=== PATIENT | female | born 1950 | race Caucasian/White ===

== ENCOUNTER → 2016-11-11 | Outpatient (CLI) | payer MEDICARE, MEDICAID ==
[~2016-11-11] MED LIST: ATOR40TA28 PO; CARV3 PO; CYCL10 PO; FLUO-191 PO; HYDR-4065 PO; LOSA25TA21 PO; MECL-111 PO; NITR.4 SL; NITR50CA PO; OMEP20 PO; SIMV-261 PO
[2016-11-11 09:12] LABS: BASOPHILS % (AUTO) 0.4 % (0.0-2.0); EOSINOPHILS % (AUTO) 1.4 % (1.0-6.0); HEMOGLOBIN 14.7 g/dL (12.0-16.0); LYMPHOCYTES # (AUTO) 2.4 K/uL (1.0-4.8); LYMPHOCYTES % (AUTO) 30.2 % (22.0-44.0); MEAN CORPUSCULAR HEMOGLOBIN 32.3 pg (26.0-34.0); MEAN CORPUSCULAR HGB CONC 33.3 G/dL (31.0-37.0); MEAN CORPUSCULAR VOLUME 97 fL (80-100); MONOCYTES # (AUTO) 0.6 K/uL (0.1-1.0); MONOCYTES % (AUTO) 6.9 % (2.0-9.0); NEUTROPHILS # (AUTO) 4.9 K/uL (1.8-7.7); NEUTROPHILS % (AUTO) 61.1 % (40.0-70.0); PLATELET COUNT (AUTO) 193 K/uL (150-450); RED BLOOD CELL COUNT(AUTO) 4.55 MIL/uL (4.00-5.20)
[2016-11-11 09:20] LABS: HEMOGLOBIN A1C 5.9 % (4.5-6.2)
[2016-11-11 09:29] LABS: ALANINE AMINOTRANSFERASE 26 U/L (12-78); ALBUMIN 3.6 g/dL (3.4-5.0); ANION GAP 8 mmol/L (8-16); ASPARTATE AMINOTRANSFERASE 16 U/L (15-37); BILIRUBIN,TOTAL 0.4 mg/dL (0.1-1.0); CALCIUM, TOTAL 8.7 mg/dL (8.8-10.5); CARBON DIOXIDE 31 mmol/L (22-29); CHLORIDE 103 mmol/L (98-107); CHOL/HDL RATIO 5.2 (3.9-5.7); GLOMERULAR FILTR. RATE CALC > 60 mL/min (>60); POTASSIUM 3.9 mmol/L (3.5-5.1); SODIUM SERUM 142 mmol/L (136-145); THYROID STIMULATING HORMONE 2.11 uIU/mL (0.36-3.74); TOTAL PROTEIN, SERUM 7.3 g/dL (6.4-8.2); UREA NITROGEN, BLOOD 12 mg/dL (7-18)
== END | disposition home or self-care (01) ==
LOC: LABPV 07:52
PROVIDERS: ATTEND Internal Medicine Cardiovascular Disease
DX: E11.8 Type 2 diabetes mellitus with unspecified complications (principal); I11.0 Hypertensive heart disease with heart failure; I50.9 Heart failure, unspecified; E55.9 Vitamin D deficiency, unspecified
CPT/HCPCS: 82306; 83036; 84439; 84443

== ENCOUNTER → 2017-01-13 | Outpatient (CLI) | payer MEDICARE, MEDICAID ==
[~2017-01-13] MED LIST changes: -SIMV-261 PO; +SIMV40 PO
[2017-01-13 10:18] LABS: BASOPHILS % (AUTO) 0.3 % (0.0-2.0); EOSINOPHILS % (AUTO) 1.2 % (1.0-6.0); HEMATOCRIT 39.7 % (36-46); LYMPHOCYTES # (AUTO) 1.8 K/uL (1.0-4.8); MEAN CORPUSCULAR HEMOGLOBIN 32.2 pg (26.0-34.0); MEAN CORPUSCULAR HGB CONC 32.8 G/dL (31.0-37.0); MEAN CORPUSCULAR VOLUME 98 fL (80-100); MONOCYTES # (AUTO) 0.6 K/uL (0.1-1.0); MONOCYTES % (AUTO) 5.9 % (2.0-9.0); NEUTROPHILS # (AUTO) 7.6 K/uL (1.8-7.7); NEUTROPHILS % (AUTO) 74.6 % (40.0-70.0); PLATELET COUNT (AUTO) 145 K/uL (150-450); RED BLOOD CELL COUNT(AUTO) 4.04 MIL/uL (4.00-5.20); WHITE BLOOD COUNT (AUTO) 10.2 K/uL (4.5-11.0)
[2017-01-13 10:27] LABS: HEMOGLOBIN A1C 6.1 % (4.5-6.2)
[2017-01-13 10:42] LABS: ALANINE AMINOTRANSFERASE 28 U/L (12-78); ALBUMIN 3.5 g/dL (3.4-5.0); ANION GAP 6 mmol/L (8-16); ASPARTATE AMINOTRANSFERASE 24 U/L (15-37); BILIRUBIN,TOTAL 0.4 mg/dL (0.1-1.0); CALCIUM, TOTAL 8.8 mg/dL (8.8-10.5); CARBON DIOXIDE 32 mmol/L (22-29); CHLORIDE 106 mmol/L (98-107); CHOL/HDL RATIO 4.4 (3.9-5.7); CREATININE 0.67 mg/dL (0.60-1.30); GLOMERULAR FILTR. RATE CALC > 60 mL/min (>60); POTASSIUM 4.2 mmol/L (3.5-5.1); SODIUM SERUM 144 mmol/L (136-145); THYROID STIMULATING HORMONE 1.41 uIU/mL (0.36-3.74); UREA NITROGEN, BLOOD 10 mg/dL (7-18)
== END | disposition home or self-care (01) ==
LOC: LABPV 08:37
PROVIDERS: ATTEND Internal Medicine Cardiovascular Disease
DX: I11.0 Hypertensive heart disease with heart failure (principal); I50.9 Heart failure, unspecified; E11.8 Type 2 diabetes mellitus with unspecified complications; R73.09 Other abnormal glucose
CPT/HCPCS: 82306; 83036; 84439; 84443

== ENCOUNTER → 2017-04-06 | Outpatient (CLI) | payer MEDICARE, MEDICAID ==
[~2017-04-06] MED LIST changes: +SIMV-261 PO; -SIMV40 PO
[2017-04-06 09:12] LABS: BASOPHILS % (AUTO) 0.4 % (0.0-2.0); HEMATOCRIT 44.4 % (36-46); HEMOGLOBIN 15.2 g/dL (12.0-16.0); LYMPHOCYTES # (AUTO) 2.8 K/uL (1.0-4.8); LYMPHOCYTES % (AUTO) 31.9 % (22.0-44.0); MEAN CORPUSCULAR HGB CONC 34.2 G/dL (31.0-37.0); MEAN CORPUSCULAR VOLUME 96 fL (80-100); MONOCYTES # (AUTO) 0.6 K/uL (0.1-1.0); MONOCYTES % (AUTO) 6.7 % (2.0-9.0); NEUTROPHILS # (AUTO) 5.3 K/uL (1.8-7.7); PLATELET COUNT (AUTO) 214 K/uL (150-450); RED BLOOD CELL COUNT(AUTO) 4.61 MIL/uL (4.00-5.20); WHITE BLOOD COUNT (AUTO) 8.9 K/uL (4.5-11.0)
[2017-04-06 09:40] LABS: ALANINE AMINOTRANSFERASE 28 U/L (12-78); ALBUMIN 3.8 g/dL (3.4-5.0); ANION GAP 9 mmol/L (8-16); ASPARTATE AMINOTRANSFERASE 14 U/L (15-37); BILIRUBIN,TOTAL 0.2 mg/dL (0.1-1.0); CALCIUM, TOTAL 9.3 mg/dL (8.8-10.5); CARBON DIOXIDE 28 mmol/L (22-29); CHLORIDE 101 mmol/L (98-107); CHOL/HDL RATIO 6.8 (3.9-5.7); CREATININE 0.74 mg/dL (0.60-1.30); GLOMERULAR FILTR. RATE CALC > 60 mL/min (>60); POTASSIUM 3.9 mmol/L (3.5-5.1); SODIUM SERUM 138 mmol/L (136-145); THYROID STIMULATING HORMONE 1.49 uIU/mL (0.36-3.74); UREA NITROGEN, BLOOD 15 mg/dL (7-18)
[2017-04-06 10:04] LABS: B-TYPE NATRIURETIC PEPTIDE 23 pg/mL (0-100)
== END | disposition home or self-care (01) ==
LOC: LABPV 07:47
PROVIDERS: ATTEND Internal Medicine Cardiovascular Disease
DX: I11.0 Hypertensive heart disease with heart failure (principal); I50.9 Heart failure, unspecified; E55.9 Vitamin D deficiency, unspecified; E11.8 Type 2 diabetes mellitus with unspecified complications
CPT/HCPCS: 82306; 83036; 83735; 84439; 84443

== ENCOUNTER → 2017-07-21 | Outpatient (CLI) | payer MEDICARE, MEDICAID ==
[2017-07-21 11:13] LABS: BASOPHILS # (AUTO) 0.02 K/uL (0.00-0.20); BASOPHILS % (AUTO) 0.3 % (0.0-2.0); EOSINOPHILS # (AUTO) 0.11 K/uL (0.00-0.70); EOSINOPHILS % (AUTO) 1.24 % (1.0-6.0); HEMATOCRIT 48.1 % (36-46); HEMOGLOBIN 16.4 g/dL (12.0-16.0); LYMPHOCYTES # (AUTO) 2.3 K/uL (1.0-4.8); LYMPHOCYTES % (AUTO) 25.5 % (22.0-44.0); MEAN CORPUSCULAR HEMOGLOBIN 32.9 pg (26.0-34.0); MEAN CORPUSCULAR VOLUME 97 fL (80-100); MONOCYTES # (AUTO) 0.6 K/uL (0.1-1.0); NEUTROPHILS # (AUTO) 5.9 K/uL (1.8-7.7); PLATELET COUNT (AUTO) 200 K/uL (150-450); RED BLOOD CELL COUNT(AUTO) 4.97 MIL/uL (4.00-5.20); RED CELL DISTRIBUTION WIDTH 13.2 % (11.5-14.5)
[2017-07-21 11:21] LABS: HEMOGLOBIN A1C 5.8 % (4.5-6.2)
[2017-07-21 11:32] LABS: B-TYPE NATRIURETIC PEPTIDE 19 pg/mL (0-100)
[2017-07-21 11:43] LABS: ALANINE AMINOTRANSFERASE 24 U/L (12-78); ALBUMIN 3.9 g/dL (3.4-5.0); ANION GAP 7 mmol/L (8-16); ASPARTATE AMINOTRANSFERASE 13 U/L (15-37); BILIRUBIN,TOTAL 0.3 mg/dL (0.1-1.0); CALCIUM, TOTAL 8.9 mg/dL (8.8-10.5); CARBON DIOXIDE 30 mmol/L (22-29); CHLORIDE 101 mmol/L (98-107); CHOL/HDL RATIO 8.7 (3.9-5.7); GLOMERULAR FILTR. RATE CALC > 60 mL/min (>60); POTASSIUM 3.8 mmol/L (3.5-5.1); SODIUM SERUM 138 mmol/L (136-145); THYROID STIMULATING HORMONE 1.35 uIU/mL (0.36-3.74); TOTAL PROTEIN, SERUM 8.4 g/dL (6.4-8.2); UREA NITROGEN, BLOOD 8 mg/dL (7-18)
== END | disposition home or self-care (01) ==
LOC: MSR 09:55
PROVIDERS: ATTEND Internal Medicine Cardiovascular Disease
DX: I11.0 Hypertensive heart disease with heart failure (principal); I50.9 Heart failure, unspecified; E11.8 Type 2 diabetes mellitus with unspecified complications; E55.9 Vitamin D deficiency, unspecified; J44.9 Chronic obstructive pulmonary disease, unspecified; I70.0 Atherosclerosis of aorta; J98.11 Atelectasis
CPT/HCPCS: 71020; 82306; 83036; 83735; 84439; 84443

== ENCOUNTER → 2017-11-17 | Outpatient (CLI) | payer MEDICARE, MEDICAID ==
[2017-11-17 10:26] LABS: BASOPHILS % (AUTO) 0.4 % (0.0-2.0); EOSINOPHILS % (AUTO) 1.2 % (1.0-6.0); HEMATOCRIT 43.9 % (36-46); HEMOGLOBIN 15.4 g/dL (12.0-16.0); LYMPHOCYTES # (AUTO) 2.2 K/uL (1.0-4.8); MEAN CORPUSCULAR HEMOGLOBIN 33.8 pg (26.0-34.0); MEAN CORPUSCULAR HGB CONC 34.9 G/dL (31.0-37.0); MEAN CORPUSCULAR VOLUME 97 fL (80-100); MONOCYTES # (AUTO) 0.6 K/uL (0.1-1.0); MONOCYTES % (AUTO) 7.6 % (2.0-9.0); NEUTROPHILS # (AUTO) 4.5 K/uL (1.8-7.7); NEUTROPHILS % (AUTO) 60.8 % (40.0-70.0); PLATELET COUNT (AUTO) 178 K/uL (150-450); RED BLOOD CELL COUNT(AUTO) 4.54 MIL/uL (4.00-5.20)
[2017-11-17 10:41] LABS: HEMOGLOBIN A1C 5.9 % (4.5-6.2)
[2017-11-17 10:46] LABS: ALANINE AMINOTRANSFERASE 20 U/L (12-78); ALBUMIN 3.8 g/dL (3.4-5.0); ALKALINE PHOSPHATASE 94 U/L (46-116); ANION GAP 6 mmol/L (8-16); ASPARTATE AMINOTRANSFERASE 16 U/L (15-37); BILIRUBIN,TOTAL 0.3 mg/dL (0.1-1.0); CALCIUM, TOTAL 9.6 mg/dL (8.8-10.5); CARBON DIOXIDE 33 mmol/L (22-29); CHLORIDE 103 mmol/L (98-107); CHOL/HDL RATIO 7.9 (3.9-5.7); CHOLESTEROL 275 mg/dL (131-200); CREATININE 0.74 mg/dL (0.60-1.30); FREE T4 (FREE THYROXINE) 0.91 ng/dL (0.76-1.46); GLOMERULAR FILTR. RATE CALC > 60 mL/min (>60); GLUCOSE,RANDOM 102 mg/dL (70-110); HDL CHOLESTEROL 35 mg/dL (40-60); LDL CHOL (CALC.) 205 mg/dL (0-130); POTASSIUM 3.7 mmol/L (3.5-5.1); SODIUM SERUM 142 mmol/L (136-145); THYROID STIMULATING HORMONE 1.45 uIU/mL (0.36-3.74); TOTAL PROTEIN, SERUM 7.5 g/dL (6.4-8.2); TRIGLYCERIDES 173 mg/dL (15-150); UREA NITROGEN, BLOOD 11 mg/dL (7-18)
== END | disposition home or self-care (01) ==
LOC: LABPV 07:51
PROVIDERS: ATTEND Internal Medicine Cardiovascular Disease
DX: I11.0 Hypertensive heart disease with heart failure (principal); I50.9 Heart failure, unspecified; E11.8 Type 2 diabetes mellitus with unspecified complications; E55.9 Vitamin D deficiency, unspecified; D56.5 Hemoglobin E-beta thalassemia
CPT/HCPCS: 82306; 83036; 83735; 84439; 84443; 86141

== ENCOUNTER → 2017-12-30 | Outpatient (CLI) | payer MEDICARE, MEDICAID ==
[2017-12-30 11:40] LABS: ALANINE AMINOTRANSFERASE 23 U/L (12-78); ALBUMIN 3.6 g/dL (3.4-5.0); ALKALINE PHOSPHATASE 102 U/L (46-116); ANION GAP 11 mmol/L (8-16); ASPARTATE AMINOTRANSFERASE 19 U/L (15-37); BILIRUBIN,TOTAL 0.3 mg/dL (0.1-1.0); CALCIUM, TOTAL 8.9 mg/dL (8.8-10.5); CARBON DIOXIDE 27 mmol/L (22-29); CHLORIDE 104 mmol/L (98-107); CHOL/HDL RATIO 7.6 (3.9-5.7); CHOLESTEROL 244 mg/dL (131-200); GLOMERULAR FILTR. RATE CALC > 60 mL/min (>60); GLUCOSE,RANDOM 100 mg/dL (70-110); HDL CHOLESTEROL 32 mg/dL (40-60); LDL CHOL (CALC.) 169 mg/dL (0-130); POTASSIUM 4.1 mmol/L (3.5-5.1); SODIUM SERUM 142 mmol/L (136-145); TOTAL PROTEIN, SERUM 7.5 g/dL (6.4-8.2); TRIGLYCERIDES 214 mg/dL (15-150)
[2017-12-30 12:09] LABS: UREA NITROGEN, BLOOD 15 mg/dL (7-18)
== END | disposition home or self-care (01) ==
LOC: LABPV 09:42
PROVIDERS: ATTEND Internal Medicine Cardiovascular Disease
DX: I11.0 Hypertensive heart disease with heart failure (principal); I50.9 Heart failure, unspecified; E11.8 Type 2 diabetes mellitus with unspecified complications; E55.9 Vitamin D deficiency, unspecified; D56.5 Hemoglobin E-beta thalassemia

== ENCOUNTER → 2018-02-18 | Outpatient (CLI) | payer MEDICARE, MEDICAID ==
[2018-02-18 10:52] LABS: ALANINE AMINOTRANSFERASE 34 U/L (12-78); ALBUMIN 3.9 g/dL (3.4-5.0); ALKALINE PHOSPHATASE 90 U/L (46-116); ANION GAP 5 mmol/L (8-16); ASPARTATE AMINOTRANSFERASE 21 U/L (15-37); BILIRUBIN,TOTAL 0.2 mg/dL (0.1-1.0); CALCIUM, TOTAL 9.7 mg/dL (8.8-10.5); CARBON DIOXIDE 31 mmol/L (22-29); CHLORIDE 100 mmol/L (98-107); CHOL/HDL RATIO 2.8 (3.9-5.7); CHOLESTEROL 153 mg/dL (131-200); CREATININE 0.74 mg/dL (0.60-1.30); GLOMERULAR FILTR. RATE CALC > 60 mL/min (>60); GLUCOSE,RANDOM 104 mg/dL (70-110); HDL CHOLESTEROL 54 mg/dL (40-60); LDL CHOL (CALC.) 82 mg/dL (0-130); POTASSIUM 5.2 mmol/L (3.5-5.1); SODIUM SERUM 136 mmol/L (136-145); TOTAL PROTEIN, SERUM 8.1 g/dL (6.4-8.2); TRIGLYCERIDES 87 mg/dL (15-150); UREA NITROGEN, BLOOD 15 mg/dL (7-18)
== END | disposition home or self-care (01) ==
LOC: LABPV 07:57
PROVIDERS: ATTEND Internal Medicine Cardiovascular Disease
DX: I11.0 Hypertensive heart disease with heart failure (principal); I50.9 Heart failure, unspecified; E55.9 Vitamin D deficiency, unspecified; E11.8 Type 2 diabetes mellitus with unspecified complications; D56.5 Hemoglobin E-beta thalassemia

== ENCOUNTER → 2018-03-30 | Outpatient (CLI) | payer MEDICARE, MEDICAID ==
[2018-03-30 12:19] LABS: BASOPHILS % (AUTO) 0.5 % (0.0-2.0); EOSINOPHILS % (AUTO) 1.3 % (1.0-6.0); HEMATOCRIT 44.7 % (36-46); HEMOGLOBIN 15.7 g/dL (12.0-16.0); LYMPHOCYTES # (AUTO) 2.7 K/uL (1.0-4.8); LYMPHOCYTES % (AUTO) 32.8 % (22.0-44.0); MEAN CORPUSCULAR HEMOGLOBIN 33.6 pg (26.0-34.0); MEAN CORPUSCULAR VOLUME 96 fL (80-100); MONOCYTES # (AUTO) 0.7 K/uL (0.1-1.0); NEUTROPHILS # (AUTO) 4.7 K/uL (1.8-7.7); NEUTROPHILS % (AUTO) 57.4 % (40.0-70.0); PLATELET COUNT (AUTO) 208 K/uL (150-450); RED BLOOD CELL COUNT(AUTO) 4.67 MIL/uL (4.00-5.20)
[2018-03-30 12:33] LABS: HEMOGLOBIN A1C 6.1 % (4.5-6.2)
[2018-03-30 12:37] LABS: ALANINE AMINOTRANSFERASE 32 U/L (12-78); ALBUMIN 3.9 g/dL (3.4-5.0); ALKALINE PHOSPHATASE 79 U/L (46-116); ANION GAP 6 mmol/L (8-16); ASPARTATE AMINOTRANSFERASE 18 U/L (15-37); BILIRUBIN,TOTAL 0.3 mg/dL (0.1-1.0); CALCIUM, TOTAL 8.9 mg/dL (8.8-10.5); CARBON DIOXIDE 31 mmol/L (22-29); CHLORIDE 100 mmol/L (98-107); CHOL/HDL RATIO 3.6 (3.9-5.7); CHOLESTEROL 146 mg/dL (131-200); CREATININE 0.64 mg/dL (0.60-1.30); GLOMERULAR FILTR. RATE CALC > 60 mL/min (>60); GLUCOSE,RANDOM 93 mg/dL (70-110); HDL CHOLESTEROL 41 mg/dL (40-60); LDL CHOL (CALC.) 77 mg/dL (0-130); POTASSIUM 4.3 mmol/L (3.5-5.1); SODIUM SERUM 137 mmol/L (136-145); THYROID STIMULATING HORMONE 1.37 uIU/mL (0.36-3.74); TOTAL PROTEIN, SERUM 7.9 g/dL (6.4-8.2); TRIGLYCERIDES 142 mg/dL (15-150); UREA NITROGEN, BLOOD 14 mg/dL (7-18)
[2018-03-30 12:40] LABS: B-TYPE NATRIURETIC PEPTIDE 16 pg/mL (0-100)
== END | disposition home or self-care (01) ==
LOC: LABPV 11:17
PROVIDERS: ATTEND Internal Medicine Cardiovascular Disease
DX: I11.0 Hypertensive heart disease with heart failure (principal); I50.9 Heart failure, unspecified; E11.8 Type 2 diabetes mellitus with unspecified complications; E55.9 Vitamin D deficiency, unspecified; D56.5 Hemoglobin E-beta thalassemia
CPT/HCPCS: 82306; 83036; 83735; 84439; 84443

== ENCOUNTER → 2018-04-19 | Outpatient (CLI) | payer MEDICARE, MEDICAID ==
[~2018-04-19] MED LIST changes: +IOVERSOL 350 MG/ML 100 ML VIAL ONE; +SODIUM CHLORIDE 0.9% 100 ML ONE
== END | disposition home or self-care (01) ==
LOC: RADMN 07:46
PROVIDERS: ATTEND Internal Medicine Cardiovascular Disease
DX: J43.9 Emphysema, unspecified (principal); I26.99 Other pulmonary embolism without acute cor pulmonale; I11.0 Hypertensive heart disease with heart failure; I50.9 Heart failure, unspecified; E11.9 Type 2 diabetes mellitus without complications; K21.9 Gastro-esophageal reflux disease without esophagitis
CPT/HCPCS: 71275; J7050; Q9967

== ENCOUNTER → 2018-04-22 | Outpatient (CLI) | payer MEDICARE, MEDICAID ==
[~2018-04-22] MED LIST changes: -IOVERSOL 350 MG/ML 100 ML VIAL ONE; -SODIUM CHLORIDE 0.9% 100 ML ONE
== END | disposition home or self-care (01) ==
LOC: RADMN 07:59
PROVIDERS: ATTEND Internal Medicine Cardiovascular Disease
DX: I50.20 Unspecified systolic (congestive) heart failure (principal); I42.5 Other restrictive cardiomyopathy
CPT/HCPCS: 78472; Q3010

== ENCOUNTER → 2018-10-01 | Outpatient (CLI) | payer MEDICARE, MEDICAID ==
[~2018-10-01] MED LIST changes: -LOSA25TA21 PO; +LOSA25TA41 PO
[2018-10-01 11:05] LABS: BASOPHILS % (AUTO) 0.4 % (0.0-2.0); EOSINOPHILS % (AUTO) 1.8 % (1.0-6.0); HEMATOCRIT 41.5 % (36-46); HEMOGLOBIN 14.6 g/dL (12.0-16.0); LYMPHOCYTES # (AUTO) 2.1 K/uL (1.0-4.8); LYMPHOCYTES % (AUTO) 23.9 % (22.0-44.0); MEAN CORPUSCULAR HEMOGLOBIN 34.8 pg (26.0-34.0); MEAN CORPUSCULAR HGB CONC 35.1 G/dL (31.0-37.0); MEAN CORPUSCULAR VOLUME 99 fL (80-100); MONOCYTES # (AUTO) 0.7 K/uL (0.1-1.0); MONOCYTES % (AUTO) 8.5 % (2.0-9.0); NEUTROPHILS # (AUTO) 5.7 K/uL (1.8-7.7); NEUTROPHILS % (AUTO) 65.4 % (40.0-70.0); PLATELET COUNT (AUTO) 188 K/uL (150-450); RED BLOOD CELL COUNT(AUTO) 4.18 MIL/uL (4.00-5.20); RED CELL DISTRIBUTION WIDTH 13.5 % (11.5-14.5)
[2018-10-01 11:53] LABS: ALANINE AMINOTRANSFERASE 33 U/L (12-78); ALBUMIN 3.7 g/dL (3.4-5.0); ALKALINE PHOSPHATASE 67 U/L (46-116); ANION GAP 6 mmol/L (8-16); ASPARTATE AMINOTRANSFERASE 21 U/L (15-37); BILIRUBIN,TOTAL 0.2 mg/dL (0.1-1.0); CALCIUM, TOTAL 9.1 mg/dL (8.8-10.5); CARBON DIOXIDE 32 mmol/L (22-29); CHLORIDE 105 mmol/L (98-107); CHOL/HDL RATIO 4.1 (3.9-5.7); CHOLESTEROL 135 mg/dL (131-200); CREATININE 0.52 mg/dL (0.60-1.30); GLOMERULAR FILTR. RATE CALC > 60 mL/min (>60); GLUCOSE,RANDOM 109 mg/dL (70-110); HDL CHOLESTEROL 33 mg/dL (40-60); LDL CHOL (CALC.) 47 mg/dL (0-130); POTASSIUM 3.9 mmol/L (3.5-5.1); SODIUM SERUM 143 mmol/L (136-145); THYROID STIMULATING HORMONE 0.84 uIU/mL (0.36-3.74); TOTAL PROTEIN, SERUM 7.4 g/dL (6.4-8.2); TRIGLYCERIDES 273 mg/dL (15-150); UREA NITROGEN, BLOOD 12 mg/dL (7-18)
[2018-10-01 11:58] LABS: HEMOGLOBIN A1C 5.8 % (4.5-6.2)
== END | disposition home or self-care (01) ==
LOC: LABPV 08:50
PROVIDERS: ATTEND Internal Medicine Cardiovascular Disease
DX: E55.9 Vitamin D deficiency, unspecified (principal); I11.0 Hypertensive heart disease with heart failure; I50.9 Heart failure, unspecified; E11.9 Type 2 diabetes mellitus without complications; D56.5 Hemoglobin E-beta thalassemia
CPT/HCPCS: 82306; 83036; 83735; 84439; 84443

== ENCOUNTER → 2019-09-05 | Outpatient (CLI) | payer MEDICARE, BC ==
[~2019-09-05] MED LIST changes: -NITR.4 SL; +NITR0.4T52 SL
[2019-09-05 12:34] LABS: BASOPHILS % (AUTO) 0.5 % (0.0-2.0); EOSINOPHILS % (AUTO) 1.6 % (1.0-6.0); HEMATOCRIT 44.7 % (36-46); HEMOGLOBIN 15.5 g/dL (12.0-16.0); LYMPHOCYTES # (AUTO) 2.3 K/uL (1.0-4.8); LYMPHOCYTES % (AUTO) 24.8 % (22.0-44.0); MEAN CORPUSCULAR HEMOGLOBIN 33.9 pg (26.0-34.0); MEAN CORPUSCULAR HGB CONC 34.6 G/dL (31.0-37.0); MEAN CORPUSCULAR VOLUME 98 fL (80-100); MONOCYTES # (AUTO) 0.7 K/uL (0.1-1.0); MONOCYTES % (AUTO) 7.4 % (2.0-9.0); NEUTROPHILS # (AUTO) 6.2 K/uL (1.8-7.7); NEUTROPHILS % (AUTO) 65.7 % (40.0-70.0); PLATELET COUNT (AUTO) 204 K/uL (150-450); RED BLOOD CELL COUNT(AUTO) 4.56 MIL/uL (4.00-5.20); RED CELL DISTRIBUTION WIDTH 12.9 % (11.5-14.5)
[2019-09-05 12:56] LABS: ALANINE AMINOTRANSFERASE 26 U/L (12-78); ALKALINE PHOSPHATASE 73 U/L (46-116); ANION GAP 9 mmol/L (8-16); ASPARTATE AMINOTRANSFERASE 20 U/L (15-37); BILIRUBIN,TOTAL 0.3 mg/dL (0.1-1.0); CALCIUM, TOTAL 9.5 mg/dL (8.8-10.5); CARBON DIOXIDE 28 mmol/L (22-29); CHLORIDE 100 mmol/L (98-107); CHOL/HDL RATIO 5.2 (3.9-5.7); CHOLESTEROL 193 mg/dL (131-200); FREE T4 (FREE THYROXINE) 0.91 ng/dL (0.76-1.46); GLOMERULAR FILTR. RATE CALC > 60 mL/min (>60); GLUCOSE,RANDOM 107 mg/dL (70-110); HDL CHOLESTEROL 37 mg/dL (40-60); LDL CHOL (CALC.) 108 mg/dL (0-130); SODIUM SERUM 137 mmol/L (136-145); THYROID STIMULATING HORMONE 1.56 uIU/mL (0.36-3.74); TOTAL PROTEIN, SERUM 8.2 g/dL (6.4-8.2); TRIGLYCERIDES 242 mg/dL (15-150); UREA NITROGEN, BLOOD 12 mg/dL (7-18)
[2019-09-05 13:04] LABS: HEMOGLOBIN A1C 5.9 % (4.5-6.2)
== END | disposition home or self-care (01) ==
LOC: LABPV 09:35
PROVIDERS: ATTEND Internal Medicine Cardiovascular Disease
DX: I11.0 Hypertensive heart disease with heart failure (principal); I50.9 Heart failure, unspecified; E11.8 Type 2 diabetes mellitus with unspecified complications; E55.9 Vitamin D deficiency, unspecified; D56.5 Hemoglobin E-beta thalassemia
CPT/HCPCS: 82306; 83036; 83735; 84439; 84443

== ENCOUNTER → 2020-05-24 | Outpatient (CLI) | payer MEDICARE ==
[~2020-05-24] MED LIST changes: -LOSA25TA41 PO; +LOSA25TA71 PO; -MECL-111 PO; +MECL-160 PO
[2020-05-24 11:24] LABS: ALBUMIN 3.6 g/dL (3.4-5.0); BILIRUBIN,TOTAL 0.2 mg/dL (0.1-1.0); CHOL/HDL RATIO 9.9 (3.9-5.7); CREATININE 1.61 mg/dL (0.60-1.30); POTASSIUM 3.1 mmol/L (3.5-5.1); TOTAL PROTEIN, SERUM 7.7 g/dL (6.4-8.2)
== END | disposition home or self-care (01) ==
LOC: LABPV 10:32
PROVIDERS: ATTEND Internal Medicine Cardiovascular Disease
DX: I11.0 Hypertensive heart disease with heart failure (principal); I50.9 Heart failure, unspecified; E11.8 Type 2 diabetes mellitus with unspecified complications; E55.9 Vitamin D deficiency, unspecified; D56.5 Hemoglobin E-beta thalassemia

== ENCOUNTER → 2020-07-25 | Outpatient (CLI) | payer MEDICARE ==
[~2020-07-25] MED LIST changes: +LOSA25TA21 PO; -LOSA25TA71 PO
[2020-07-25 12:21] LABS: BASOPHILS % (AUTO) 0.5 % (0.0-2.0); HEMATOCRIT 43.9 % (36-46); LYMPHOCYTES # (AUTO) 2.3 K/uL (1.0-4.8); LYMPHOCYTES % (AUTO) 20.9 % (22.0-44.0); MEAN CORPUSCULAR HEMOGLOBIN 33.9 pg (26.0-34.0); MEAN CORPUSCULAR HGB CONC 34.3 G/dL (31.0-37.0); MEAN CORPUSCULAR VOLUME 99 fL (80-100); MONOCYTES # (AUTO) 0.6 K/uL (0.1-1.0); MONOCYTES % (AUTO) 5.3 % (2.0-9.0); NEUTROPHILS # (AUTO) 7.9 K/uL (1.8-7.7); NEUTROPHILS % (AUTO) 72.3 % (40.0-70.0); PLATELET COUNT (AUTO) 264 K/uL (150-450); RED BLOOD CELL COUNT(AUTO) 4.43 MIL/uL (4.00-5.20); RED CELL DISTRIBUTION WIDTH 13.4 % (11.5-14.5)
[2020-07-25 12:30] LABS: HEMOGLOBIN A1C 5.9 % (3.8-5.6)
[2020-07-25 12:33] LABS: ALANINE AMINOTRANSFERASE 20 U/L (12-78); ALBUMIN 3.6 g/dL (3.4-5.0); ALKALINE PHOSPHATASE 73 U/L (46-116); ANION GAP 13 mmol/L (8-16); ASPARTATE AMINOTRANSFERASE 15 U/L (15-37); BILIRUBIN,TOTAL 0.3 mg/dL (0.1-1.0); CALCIUM, TOTAL 9.8 mg/dL (8.8-10.5); CARBON DIOXIDE 29 mmol/L (22-29); CHLORIDE 100 mmol/L (98-107); CHOL/HDL RATIO 5.7 (3.9-5.7); CHOLESTEROL 204 mg/dL (131-200); CREATININE 0.71 mg/dL (0.60-1.30); FREE T4 (FREE THYROXINE) 0.98 ng/dL (0.76-1.46); GLOMERULAR FILTR. RATE CALC > 60 mL/min (>60); GLUCOSE,RANDOM 134 mg/dL (70-110); HDL CHOLESTEROL 36 mg/dL (40-60); LDL CHOL (CALC.) 124 mg/dL (0-130); POTASSIUM 3.4 mmol/L (3.5-5.1); SODIUM SERUM 142 mmol/L (136-145); THYROID STIMULATING HORMONE 0.58 uIU/mL (0.36-3.74); TRIGLYCERIDES 218 mg/dL (15-150); UREA NITROGEN, BLOOD 13 mg/dL (7-18)
[2020-07-25 13:58] LABS: B-TYPE NATRIURETIC PEPTIDE < 5 pg/mL (0-100)
== END | disposition home or self-care (01) ==
LOC: LABPV 09:44
PROVIDERS: ATTEND Internal Medicine Cardiovascular Disease
DX: I11.0 Hypertensive heart disease with heart failure (principal); I50.9 Heart failure, unspecified; E11.8 Type 2 diabetes mellitus with unspecified complications; E55.9 Vitamin D deficiency, unspecified; D56.5 Hemoglobin E-beta thalassemia
CPT/HCPCS: 82306; 83036; 83735; 84439; 84443

== ENCOUNTER → 2020-10-22 | Outpatient (CLI) | payer MEDICARE ==
[2020-10-22 09:32] LABS: EOSINOPHILS % (AUTO) 2.8 % (1.0-6.0); HEMATOCRIT 44.6 % (36-46); HEMOGLOBIN 15.5 g/dL (12.0-16.0); LYMPHOCYTES # (AUTO) 2.2 K/uL (1.0-4.8); LYMPHOCYTES % (AUTO) 26.4 % (22.0-44.0); MEAN CORPUSCULAR HGB CONC 34.7 G/dL (31.0-37.0); MEAN CORPUSCULAR VOLUME 98 fL (80-100); MONOCYTES # (AUTO) 0.6 K/uL (0.1-1.0); MONOCYTES % (AUTO) 7.2 % (2.0-9.0); NEUTROPHILS # (AUTO) 5.3 K/uL (1.8-7.7); NEUTROPHILS % (AUTO) 62.6 % (40.0-70.0); PLATELET COUNT (AUTO) 239 K/uL (150-450); RED BLOOD CELL COUNT(AUTO) 4.55 MIL/uL (4.00-5.20); RED CELL DISTRIBUTION WIDTH 12.7 % (11.5-14.5)
[2020-10-22 10:14] LABS: ALANINE AMINOTRANSFERASE 27 U/L (12-78); ALBUMIN 3.5 g/dL (3.4-5.0); ALKALINE PHOSPHATASE 86 U/L (46-116); ANION GAP 9 mmol/L (8-16); ASPARTATE AMINOTRANSFERASE 14 U/L (15-37); BILIRUBIN,TOTAL 0.3 mg/dL (0.1-1.0); CALCIUM, TOTAL 9.3 mg/dL (8.8-10.5); CARBON DIOXIDE 27 mmol/L (22-29); CHLORIDE 102 mmol/L (98-107); CHOLESTEROL 124 mg/dL (131-200); CREATININE 0.67 mg/dL (0.60-1.30); FREE T4 (FREE THYROXINE) 1.13 ng/dL (0.76-1.46); GLOMERULAR FILTR. RATE CALC > 60 mL/min (>60); GLUCOSE,RANDOM 104 mg/dL (70-110); HDL CHOLESTEROL 31 mg/dL (40-60); LDL CHOL (CALC.) 65 mg/dL (0-130); POTASSIUM 3.4 mmol/L (3.5-5.1); SODIUM SERUM 138 mmol/L (136-145); THYROID STIMULATING HORMONE 3.05 uIU/mL (0.36-3.74); TOTAL PROTEIN, SERUM 7.9 g/dL (6.4-8.2); TRIGLYCERIDES 139 mg/dL (15-150); UREA NITROGEN, BLOOD 13 mg/dL (7-18)
[2020-10-22 10:16] LABS: HEMOGLOBIN A1C 5.6 % (3.8-5.6)
[2020-10-22 10:42] LABS: B-TYPE NATRIURETIC PEPTIDE 18 pg/mL (0-100)
== END | disposition home or self-care (01) ==
LOC: LABPV 09:04
PROVIDERS: ATTEND Internal Medicine Cardiovascular Disease
DX: I11.0 Hypertensive heart disease with heart failure (principal); I50.9 Heart failure, unspecified; E11.8 Type 2 diabetes mellitus with unspecified complications; E55.9 Vitamin D deficiency, unspecified; D56.5 Hemoglobin E-beta thalassemia
CPT/HCPCS: 82306; 83036; 83735; 84439; 84443

== ENCOUNTER → 2020-12-17 | Outpatient (CLI) | payer MEDICARE, OTHER ==
[2020-12-17 12:27] LABS: BASOPHILS % (AUTO) 0.7 % (0.0-2.0); EOSINOPHILS % (AUTO) 1.6 % (1.0-6.0); HEMATOCRIT 45.4 % (36-46); HEMOGLOBIN 15.4 g/dL (12.0-16.0); LYMPHOCYTES # (AUTO) 2.2 K/uL (1.0-4.8); LYMPHOCYTES % (AUTO) 24.9 % (22.0-44.0); MEAN CORPUSCULAR HEMOGLOBIN 32.8 pg (26.0-34.0); MEAN CORPUSCULAR HGB CONC 33.9 G/dL (31.0-37.0); MEAN CORPUSCULAR VOLUME 97 fL (80-100); MONOCYTES # (AUTO) 0.6 K/uL (0.1-1.0); MONOCYTES % (AUTO) 6.6 % (2.0-9.0); NEUTROPHILS # (AUTO) 5.8 K/uL (1.8-7.7); NEUTROPHILS % (AUTO) 66.2 % (40.0-70.0); PLATELET COUNT (AUTO) 194 K/uL (150-450); RED BLOOD CELL COUNT(AUTO) 4.69 MIL/uL (4.00-5.20); RED CELL DISTRIBUTION WIDTH 12.8 % (11.5-14.5)
[2020-12-17 13:19] LABS: ALANINE AMINOTRANSFERASE 27 U/L (12-78); ALBUMIN 3.7 g/dL (3.4-5.0); ALKALINE PHOSPHATASE 85 U/L (46-116); ANION GAP 10 mmol/L (8-16); ASPARTATE AMINOTRANSFERASE 15 U/L (15-37); BILIRUBIN,TOTAL 0.4 mg/dL (0.1-1.0); CALCIUM, TOTAL 9.9 mg/dL (8.8-10.5); CARBON DIOXIDE 28 mmol/L (22-29); CHLORIDE 102 mmol/L (98-107); CHOL/HDL RATIO 4.8 (3.9-5.7); CHOLESTEROL 154 mg/dL (131-200); CREATININE 0.62 mg/dL (0.60-1.30); FREE T4 (FREE THYROXINE) 0.88 ng/dL (0.76-1.46); GLOMERULAR FILTR. RATE CALC > 60 mL/min (>60); GLUCOSE,RANDOM 106 mg/dL (70-110); HDL CHOLESTEROL 32 mg/dL (40-60); LDL CHOL (CALC.) 77 mg/dL (0-130); POTASSIUM 4.3 mmol/L (3.5-5.1); SODIUM SERUM 140 mmol/L (136-145); THYROID STIMULATING HORMONE 0.92 uIU/mL (0.36-3.74); TOTAL PROTEIN, SERUM 7.8 g/dL (6.4-8.2); TRIGLYCERIDES 224 mg/dL (15-150); UREA NITROGEN, BLOOD 16 mg/dL (7-18)
[2020-12-17 13:23] LABS: HEMOGLOBIN A1C 5.9 % (3.8-5.6)
[2020-12-17 13:32] LABS: B-TYPE NATRIURETIC PEPTIDE 32 pg/mL (0-100)
== END | disposition home or self-care (01) ==
LOC: LABPV 11:05
PROVIDERS: ATTEND Internal Medicine Cardiovascular Disease
DX: E11.8 Type 2 diabetes mellitus with unspecified complications (principal); E55.9 Vitamin D deficiency, unspecified; D56.5 Hemoglobin E-beta thalassemia; I11.0 Hypertensive heart disease with heart failure
CPT/HCPCS: 82306; 83036; 83735; 83880; 84439; 84443

== ENCOUNTER → 2021-03-12 | Outpatient (CLI) | payer MEDICARE, OTHER ==
[2021-03-12 13:04] LABS: MAGNESIUM 1.8 mg/dL (1.80-2.40)
== END | disposition home or self-care (01) ==
LOC: LABPV 08:50
PROVIDERS: ATTEND Internal Medicine Cardiovascular Disease
DX: I11.0 Hypertensive heart disease with heart failure (principal); I50.9 Heart failure, unspecified; E11.8 Type 2 diabetes mellitus with unspecified complications; E55.9 Vitamin D deficiency, unspecified; D56.5 Hemoglobin E-beta thalassemia
CPT/HCPCS: 83735; 83880

== ENCOUNTER → 2021-06-24 | Outpatient (CLI) | payer MEDICARE ==
[2021-06-24 10:00] LABS: BASOPHILS % (AUTO) 0.5 % (0.0-2.0); HEMATOCRIT 47.6 % (36-46); HEMOGLOBIN 16.2 g/dL (12.0-16.0); LYMPHOCYTES # (AUTO) 1.9 K/uL (1.0-4.8); LYMPHOCYTES % (AUTO) 22.9 % (22.0-44.0); MEAN CORPUSCULAR VOLUME 94 fL (80-100); MONOCYTES # (AUTO) 0.6 K/uL (0.1-1.0); MONOCYTES % (AUTO) 7.1 % (2.0-9.0); NEUTROPHILS # (AUTO) 5.7 K/uL (1.8-7.7); NEUTROPHILS % (AUTO) 68.5 % (40.0-70.0); PLATELET COUNT (AUTO) 201 K/uL (150-450); RED BLOOD CELL COUNT(AUTO) 5.06 MIL/uL (4.00-5.20); RED CELL DISTRIBUTION WIDTH 13.9 % (11.5-14.5)
[2021-06-24 10:19] LABS: HEMOGLOBIN A1C 6.1 % (3.8-5.6)
[2021-06-24 10:32] LABS: ALANINE AMINOTRANSFERASE 27 U/L (12-78); ALBUMIN 3.8 g/dL (3.4-5.0); ALKALINE PHOSPHATASE 140 U/L (46-116); ANION GAP 11 mmol/L (8-16); ASPARTATE AMINOTRANSFERASE 20 U/L (15-37); BILIRUBIN,TOTAL 0.4 mg/dL (0.1-1.0); CALCIUM, TOTAL 9.4 mg/dL (8.8-10.5); CARBON DIOXIDE 30 mmol/L (22-29); CHLORIDE 104 mmol/L (98-107); CHOL/HDL RATIO 3.5 (3.9-5.7); CHOLESTEROL 119 mg/dL (131-200); CREATININE 0.73 mg/dL (0.60-1.30); FREE T4 (FREE THYROXINE) 0.94 ng/dL (0.76-1.46); GLOMERULAR FILTR. RATE CALC > 60 mL/min (>60); GLUCOSE,RANDOM 110 mg/dL (70-110); HDL CHOLESTEROL 34 mg/dL (40-60); LDL CHOL (CALC.) 49 mg/dL (0-130); POTASSIUM 4.7 mmol/L (3.5-5.1); SODIUM SERUM 145 mmol/L (136-145); THYROID STIMULATING HORMONE 0.68 uIU/mL (0.36-3.74); TOTAL PROTEIN, SERUM 8.5 g/dL (6.4-8.2); TRIGLYCERIDES 179 mg/dL (15-150); UREA NITROGEN, BLOOD 11 mg/dL (7-18)
== END | disposition home or self-care (01) ==
LOC: LABPV 09:22
PROVIDERS: ATTEND Internal Medicine Cardiovascular Disease
DX: E11.9 Type 2 diabetes mellitus without complications (principal); I50.9 Heart failure, unspecified; E55.9 Vitamin D deficiency, unspecified
CPT/HCPCS: 80053; 80061; 82306; 83036; 83735; 84439; 84443; 84481; 85025